=== PATIENT | female | born 1980 | race Caucasian/White ===

== ENCOUNTER 2019-02-10 20:42 | Observation (INO) | payer OTHER ==
[2019-02-10] MEDS ORDERED: Sodium Chloride 0.9% 1000 ML 1,000 ML ONE ×2 (20:52→22:35)
[2019-02-10] MEDS ORDERED: Sodium Chloride 0.9% 1000 ML 2,000 ML ONE (20:59)
[2019-02-10] MEDS ORDERED: Sodium Chloride 0.9% 1000 ML 1,000 ML IV STA (21:04)
[2019-02-10 21:09] LABS: A-aADO2 72; ABG HEMOGLOBIN 11.2; ARTERIAL BLD GAS O2 SATURATION 100.1 % (95-100); ARTERIAL BLOOD GAS BASE EXCESS -3.9 (-2.0-2.0); ARTERIAL BLOOD GAS FIO2 100 %; ARTERIAL BLOOD GAS PCO2 40 mmHg (35-45); ARTERIAL BLOOD GAS PO2 591 mmHg (75-100); ARTERIAL BLOOD GAS pH 7.34 (7.35-7.45); CARBOXYHEMOGLOBIN 1.8 % THgb (0.0-6.9); HCO3- 21.6 (22-28); Lactic Acid 1.4 (0.4-2.0); Methhemoglobin 1.3 % (1.4-1.5); paO2 pAO1 0.89
[2019-02-10 21:10] LABS: ABG SITE FEMORAL
[2019-02-10 21:11] LABS: ALLEN TEST OK? NO
--- NOTE | 2019-02-10 21:16 | ERPHSYRPT ---
- History of Present Illness Time Seen by Provider: 02/10/19 20:42 Source: other Physician History: A COUPLE DROVE HOME AND FOUND A STRANGER THE PATIENT SITTING IN A SWING ON THERE. PATIENT WITH HISTORY OF SUBSTANCE ABUSE, AMBULATED TO THEIR VAN AND ENROUTE TO EMERGENCY BECAME UNRESPONSIVE TO VERBAL STIMULI. Timing/Duration: today (PRIOR TO ER ARRIVAL) Character of Deficits: other (UNRESPONSIVE TO VERBAL STIMULI, WITHDRAWS TO PAIN) Baseline/Normal Cognition: poor alertness Current Cognition: poor alertness Associated Symptoms: loss of consciousness - Review of Systems Constitutional: Other (UNRESPONSIVE), No Fever, No Chills Respiratory: No Cough, No Dyspnea Cardiac: No Chest Pain, No Edema, No Syncope Abdominal/Gastrointestinal: No Abdominal Pain, No Nausea, No Vomiting, No Diarrhea Genitourinary Symptoms: No Dysuria Musculoskeletal: No Back Pain, No Neck Pain Skin: No Rash Neurological: No Dizziness, No Focal Weakness, No Sensory Changes All Other Systems: Unable due to condition (DUE TO UNRESPONSIVENESS) - Female History Hx Now: (UNKNOWN) - Nursing Vital Signs Nursing Vital Signs: Initial Vital Signs Temperature 96.4 F 02/10/19 20:42 Pulse Rate 82 02/10/19 20:42 Respiratory Rate 6 L 02/10/19 20:42 Blood Pressure 77/44 02/10/19 20:42 O2 Sat by Pulse Oximetry 100 02/10/19 20:42 Pain Scale Pain Intensity 0 - Odalis Coma Scale Best Eye Response (Odalis): (2) open to pain Best Verbal Response (Odalis): (1) no verbal response Best Motor Response (Odalis): (4) withdraws to pain Odalis Total: 7 - Physical Exam General Appearance: other (UNRESPONSIVE TO VERBAL STIMULI, WITHDRAWS TO JAW THRUST) Eye Exam: bilateral eye: other (PUPILS PINPOINT) Ears, Nose, Throat Exam: normal ENT inspection Neck Exam: normal inspection Respiratory: other (BREATH SOUNDS CLEAR BUT HYPOCAPNIC) Cardiovascular: regular rate/rhythm, gallop, other (PULSES 1+) Gastrointestinal: soft, normal bowel sounds Back Exam: normal inspection Extremity Exam: normal inspection Peripheral Pulses: carotid (R): 2+, carotid (L): 2+, femoral (R): 2+, femoral (L ): 1+, dorsalis-pedis (R): 1+, dorsalis-pedis (L): 1+ Mental Status: unresponsive DTR: bicep (R): 1+, bicep (L): 1+, tricep (R): 1+, tricep (L): 1+, knee (R): 1+ Skin Exam: normal color SpO2 Interpretation: normal SpO2: 100 O2 Delivery: Non-rebreather - Course EKG Interpreted by Me: RATE, Sinus Rhythm, NORMAL AXIS (RATE ), Right [place] Deviation (RATE OF 84) - Radiology Exams Chest X-ray Interpretation: Discussed w/ radiologist, Negative, No Infiltrates - CT Exams Head CT Interpretation: Discussed w/radiologist (NO GROSS ACUTE INTRACRANIAL ABNORMALITIES) Cervical Spine CT Interpretation: Discussed w/radiologist (NO EVIDENCE OF FRACTURE OR DISLOCATION), Other (MILD ANTERIOR SUBCUTANEOUS EMHYSEMA) Ordered Tests: Active Orders 24 hr Category Date Time Status Catheter-[place] Carter STAT Care 02/10/19 21:04 Active EKG-ER Only STAT Care 02/10/19 21:09 Active IV Insertion STAT Care 02/10/19 21:04 Active Oxygen-ED Only NON-REBREATHER 100% Care 02/10/19 21:04 Active CERVICAL SPINE WO CONTRAST [CT] Stat Exams 02/10/19 21:19 Completed CHEST 1 VIEW (PORTABLE) Stat Exams 02/10/19 22:09 Taken HEAD WITHOUT CONTRAST [CT] Stat Exams 02/10/19 21:19 Completed ACETAMINOPHEN Stat Lab 02/10/19 21:00 Completed AMYLASE Stat Lab 02/10/19 21:00 Completed ARTERIAL BLOOD GASES Stat Lab 02/10/19 21:04 Completed CBC W DIFF Stat Lab 02/10/19 21:00 Completed CMP Stat Lab 02/10/19 21:00 Completed CULTURE,URINE Stat Lab 02/10/19 21:44 Received ETHYL ALCOHOL Stat Lab 02/10/19 21:00 Completed HCG,QUALITATIVE URINE Stat Lab 02/10/19 21:36 Completed LIPASE Stat Lab 02/10/19 21:00 Completed Lactic Acid Stat Lab 02/10/19 21:04 Completed PROTIME WITH INR Stat Lab 02/10/19 21:00 Completed SALICYLATE Stat Lab 02/10/19 21:00 Completed UA W/RFX UR CULTURE Stat Lab 02/10/19 21:44 Completed Urine Triage Profile Stat Lab 02/10/19 21:44 Completed Transfer Order Routine Transfer 02/11/19 Ordered Medication Summary Generic Name Dose Route Start Last Admin Trade Name Fresummer PRN Reason Stop Dose Admin Sodium Chloride 1,000 mls @ 999 mls/hr 02/11/19 00:33 02/10/19 20:45 Sodium Chloride 0.9% 1000 Ml IV 02/11/19 01:33 999 mls/hr .Q1H1M STA Administration Sodium Chloride 1,000 mls @ 999 mls/hr 02/11/19 00:34 02/10/19 20:50 Sodium Chloride 0.9% 1000 Ml IV 02/11/19 01:34 999 mls/hr .Q1H1M STA Administration Discontinued Medications Generic Name Dose Route Start Last Admin Trade Name Lionq PRN Reason Stop Dose Admin Albuterol/Ipratropium Confirm 02/11/19 00:37 Duoneb 0.5-3 Mg/3 Ml Neb Administered 02/11/19 00:38 Dose 3 ml IH .STK-MED ONE Sodium Chloride Confirm 02/10/19 20:52 Sodium Chloride 0.9% 1000 Ml Administered 02/10/19 20:53 Dose 1,000 mls @ ud .ROUTE .STK-MED ONE Sodium Chloride Confirm 02/10/19 20:59 Sodium Chloride 0.9% 1000 Ml Administered 02/10/19 21:00 Dose 2,000 mls @ ud .ROUTE .STK-MED ONE Sodium Chloride 1,000 mls @ 999 mls/hr 02/10/19 21:04 02/10/19 20:45 Sodium Chloride 0.9% 1000 Ml IV 02/10/19 22:04 999 mls/hr .Q1H1M STA Administration Sodium Chloride Confirm 02/10/19 22:35 Sodium Chloride 0.9% 1000 Ml Administered 02/10/19 22:36 Dose 1,000 mls @ ud .ROUTE .STK-MED ONE Naloxone HCl 2 mg 02/11/19 00:33 02/10/19 20:43 Narcan 2 Mg/2 Ml IV 02/11/19 00:34 2 mg STAT ONE Administration Lab/Rad Data: Laboratory Result Diagrams 02/10/19 21:00 02/10/19 21:00 Laboratory Results 02/10/19 02/10/19 02/10/19 Range/Units 21:44 21:44 21:36 WBC (4.0-10.5) K/mm3 RBC (4.1-5.4) M/mm3 Hgb (12.0-16.0) gm/dl Hct (35-47) % MCV (78-100) fl MCH (26-32) pg MCHC (32-36) g/dl RDW (11.5-14.0) % Plt Count (150-450) K/mm3 MPV (6-9.5) fl Gran % (36.0-66.0) % Eos # (Auto) (0-0.5) Absolute Lymphs (auto) (1.0-4.6) Absolute Monos (auto) (0.0-1.3) Lymphocytes % (24.0-44.0) % Monocytes % (0.0-12.0) % Eosinophils % (0.00-5.0) % Basophils % (0.0-0.4) % Absolute Granulocytes (1.4-6.9) Basophils # (0-0.4) PT (9.95-12.35) SECONDS INR (0.8-3.0) Puncture Site pCO2 (35-45) mmHg pO2 (75-100) mmHg Base Excess (-2.0-2.0) O2 Saturation (94-100) g/dF ABG pH (7.35-7.45) ABG HCO3 (22-28) ABG O2 Sat (Measured) (95-100) % Christophe Test A-a Gradient a/A Ratio Hemoglobin Carboxyhemoglobin (0.0-6.9) % THgb Methemoglobin (1.4-1.5) % Temperature C POC O2 Flow Rate % Sodium (137-145) mmol/L Potassium (3.5-5.1) mmol/L Chloride (98-107) mmol/L Carbon Dioxide (22-30) mmol/L Anion Gap (5-15) MEQ/L BUN (7-17) mg/dL Creatinine (0.52-1.04) mg/dL Estimated GFR ML/MIN Glucose (74-106) mg/dL Lactic Acid (0.4-2.0) Calcium (8.4-10.2) mg/dL Total Bilirubin (0.2-1.3) mg/dL AST (14-36) U/L ALT (0-35) U/L Alkaline Phosphatase (38-126) U/L Serum Total Protein (6.3-8.2) g/dL Albumin (3.5-5.0) g/dL Amylase (30-110) U/L Lipase (23-300) U/L Urine Color YELLOW (YELLOW) Urine Appearance CLOUDY (CLEAR) Urine pH 5.0 (5-6) Ur Specific Iota 1.019 (1.005-1.025) Urine Protein 30 (Negative) Urine Ketones NEGATIVE (NEGATIVE) Urine Blood NEGATIVE (0-5) Robbi/ul Urine Nitrite NEGATIVE (NEGATIVE) Urine Bilirubin NEGATIVE (NEGATIVE) Urine Urobilinogen NEGATIVE (0-1) mg/dL Ur Leukocyte Esterase NEGATIVE (NEGATIVE) Urine WBC (Auto) 0-2 (0-5) /HPF Urine RBC (Auto) 0-2 (0-2) /HPF U Hyaline Cast (Auto) 11-25 (0-2) /LPF U Epithel Cells (Auto) RARE (FEW) /HPF Urine Bacteria (Auto) NONE (NEGATIVE) /HPF Urine Mucus (Auto) SLIGHT (NEGATIVE) /HPF Urine Culture Reflexed NO (NO) Urine Glucose NEGATIVE (NEGATIVE) mg/dL Urine HCG, Qual NEGATIVE (Negative) Salicylates (2-20) mg/dL Urine Opiates Level NEGATIVE (NEGATIVE) Ur Methadone NEGATIVE (NEGATIVE) Acetaminophen (10-30) ug/ml Urine Barbiturates NEGATIVE (NEGATIVE) Ur Phencyclidine (PCP) NEGATIVE (NEGATIVE) Urine Amphetamine POSITIVE (NEGATIVE) U Benzodiazepine Level POSITIVE (NEGATIVE) Urine Cocaine NEGATIVE (NEGATIVE) Urine Marijuana (THC) POSITIVE (NEGATIVE) Ethyl Alcohol (0-10) mg/dL 02/10/19 02/10/19 02/10/19 Range/Units 21:04 21:00 21:00 WBC (4.0-10.5) K/mm3 RBC (4.1-5.4) M/mm3 Hgb (12.0-16.0) gm/dl Hct (35-47) % MCV (78-100) fl MCH (26-32) pg MCHC (32-36) g/dl RDW (11.5-14.0) % Plt Count (150-450) K/mm3 MPV (6-9.5) fl Gran % (36.0-66.0) % Eos # (Auto) (0-0.5) Absolute Lymphs (auto) (1.0-4.6) Absolute Monos (auto) (0.0-1.3) Lymphocytes % (24.0-44.0) % Monocytes % (0.0-12.0) % Eosinophils % (0.00-5.0) % Basophils % (0.0-0.4) % Absolute Granulocytes (1.4-6.9) Basophils # (0-0.4) PT 12.8 H (9.95-12.35) SECONDS INR 1.13 (0.8-3.0) Puncture Site FEMORAL pCO2 40 (35-45) mmHg pO2 591 H* (75-100) mmHg Base Excess -3.9 L (-2.0-2.0) O2 Saturation 97.0 (94-100) g/dF ABG pH 7.34 L (7.35-7.45) ABG HCO3 21.6 L (22-28) ABG O2 Sat (Measured) 100.1 H (95-100) % Christophe Test NO A-a Gradient 72 a/A Ratio 0.89 Hemoglobin 11.2 Carboxyhemoglobin 1.8 (0.0-6.9) % THgb Methemoglobin 1.3 L (1.4-1.5) % Temperature 37.0 C POC O2 Flow Rate 100 % Sodium (137-145) mmol/L Potassium 4.0 (3.5-5.1) mmol/L Chloride (98-107) mmol/L Carbon Dioxide (22-30) mmol/L Anion Gap (5-15) MEQ/L BUN (7-17) mg/dL Creatinine (0.52-1.04) mg/dL Estimated GFR ML/MIN Glucose (74-106) mg/dL Lactic Acid 1.4 (0.4-2.0) Calcium (8.4-10.2) mg/dL Total Bilirubin (0.2-1.3) mg/dL AST (14-36) U/L ALT (0-35) U/L Alkaline Phosphatase (38-126) U/L Serum Total Protein (6.3-8.2) g/dL Albumin (3.5-5.0) g/dL Amylase 49 (30-110) U/L Lipase 62 (23-300) U/L Urine Color (YELLOW) Urine Appearance (CLEAR) Urine pH (5-6) Ur Specific Iota (1.005-1.025) Urine Protein (Negative) Urine Ketones (NEGATIVE) Urine Blood (0-5) Robbi/ul Urine Nitrite (NEGATIVE) Urine Bilirubin (NEGATIVE) Urine Urobilinogen (0-1) mg/dL Ur Leukocyte Esterase (NEGATIVE) Urine WBC (Auto) (0-5) /HPF Urine RBC (Auto) (0-2) /HPF U Hyaline Cast (Auto) (0-2) /LPF U Epithel Cells (Auto) (FEW) /HPF Urine Bacteria (Auto) (NEGATIVE) /HPF Urine Mucus (Auto) (NEGATIVE) /HPF Urine Culture Reflexed (NO) Urine Glucose (NEGATIVE) mg/dL Urine HCG, Qual (Negative) Salicylates (2-20) mg/dL Urine Opiates Level (NEGATIVE) Ur Methadone (NEGATIVE) Acetaminophen (10-30) ug/ml Urine Barbiturates (NEGATIVE) Ur Phencyclidine (PCP) (NEGATIVE) Urine Amphetamine (NEGATIVE) U Benzodiazepine Level (NEGATIVE) Urine Cocaine (NEGATIVE) Urine Marijuana (THC) (NEGATIVE) Ethyl Alcohol (0-10) mg/dL 02/10/19 02/10/19 Range/Units 21:00 21:00 WBC 11.7 H (4.0-10.5) K/mm3 RBC 4.19 (4.1-5.4) M/mm3 Hgb 12.2 (12.0-16.0) gm/dl Hct 37.9 (35-47) % MCV 90.5 (78-100) fl MCH 29.1 (26-32) pg MCHC 32.2 (32-36) g/dl RDW 14.8 H (11.5-14.0) % Plt Count 342 (150-450) K/mm3 MPV 10.6 H (6-9.5) fl Gran % 59.1 (36.0-66.0) % Eos # (Auto) 0.53 H (0-0.5) Absolute Lymphs (auto) 3.15 (1.0-4.6) Absolute Monos (auto) 1.07 (0.0-1.3) Lymphocytes % 27.0 (24.0-44.0) % Monocytes % 9.2 (0.0-12.0) % Eosinophils % 4.5 (0.00-5.0) % Basophils % 0.2 (0.0-0.4) % Absolute Granulocytes 6.88 (1.4-6.9) Basophils # 0.02 (0-0.4) PT (9.95-12.35) SECONDS INR (0.8-3.0) Puncture Site pCO2 (35-45) mmHg pO2 (75-100) mmHg Base Excess (-2.0-2.0) O2 Saturation (94-100) g/dF ABG pH (7.35-7.45) ABG HCO3 (22-28) ABG O2 Sat (Measured) (95-100) % Christophe Test A-a Gradient a/A Ratio Hemoglobin Carboxyhemoglobin (0.0-6.9) % THgb Methemoglobin (1.4-1.5) % Temperature C POC O2 Flow Rate % Sodium 141 (137-145) mmol/L Potassium 4.5 (3.5-5.1) mmol/L Chloride 115 H (98-107) mmol/L Carbon Dioxide 20 L (22-30) mmol/L Anion Gap 11.1 (5-15) MEQ/L BUN 32 H (7-17) mg/dL Creatinine 3.62 H (0.52-1.04) mg/dL Estimated GFR 14.9 ML/MIN Glucose 119 H (74-106) mg/dL Lactic Acid (0.4-2.0) Calcium 7.5 L (8.4-10.2) mg/dL Total Bilirubin 0.30 (0.2-1.3) mg/dL AST 18 (14-36) U/L ALT 13 (0-35) U/L Alkaline Phosphatase 75 (38-126) U/L Serum Total Protein 6.1 L (6.3-8.2) g/dL Albumin 3.3 L (3.5-5.0) g/dL Amylase (30-110) U/L Lipase (23-300) U/L Urine Color (YELLOW) Urine Appearance (CLEAR) Urine pH (5-6) Ur Specific [place] (1.005-1.025) Urine Protein (Negative) Urine Ketones (NEGATIVE) Urine Blood (0-5) Robbi/ul Urine Nitrite (NEGATIVE) Urine Bilirubin (NEGATIVE) Urine Urobilinogen (0-1) mg/dL Ur Leukocyte Esterase (NEGATIVE) Urine WBC (Auto) (0-5) /HPF Urine RBC (Auto) (0-2) /HPF U Hyaline Cast (Auto) (0-2) /LPF U Epithel Cells (Auto) (FEW) /HPF Urine Bacteria (Auto) (NEGATIVE) /HPF Urine Mucus (Auto) (NEGATIVE) /HPF Urine Culture Reflexed (NO) Urine Glucose (NEGATIVE) mg/dL Urine HCG, Qual (Negative) Salicylates < 1.0 L (2-20) mg/dL Urine Opiates Level (NEGATIVE) Ur Methadone (NEGATIVE) Acetaminophen < 10 L (10-30) ug/ml Urine Barbiturates (NEGATIVE) Ur Phencyclidine (PCP) (NEGATIVE) Urine Amphetamine (NEGATIVE) U Benzodiazepine Level (NEGATIVE) Urine Cocaine (NEGATIVE) Urine Marijuana (THC) (NEGATIVE) Ethyl Alcohol < 10 (0-10) mg/dL - Progress Progress Note: 02/10/19 22:56 ARRIVED TO EMERGENCY ROOM VIA STRETCHER, UNRESPONSIVE TO VERBAL STIMULI, WITHDRAWS TO PAIN, HAS EYE OPENING AND INCREASED RESPIRATIONS UPON JAW THRUST, AN ARTERIAL BLOOD GAS ON 100% NONREBREATHER ABG PH-7.34, CO2-40, PO2-591,SAO2- 100%, LACTIC ACID 1.4 PATIENT HYDRATED 2LITERS OVER 90MINUTESN, REPEATED TO TOTAL DOSE OF 4000ML OVER 3 HOURS. BP IMPROVED TOO 96 SYSTOLIC 02/11/19 00:34 BP 103/60, PATIENT COMPLETELY AWAKE AT 0028 ADMINISTERED DUONEB AEROSOL TX Discussed with Dr.: Arce (DISCUSSED WITH DR ARCE AT 0030 FOR OBSERVATION) Counseled pt/family regarding: lab results, diagnosis, need for follow-up - Departure Departure Disposition: Observation Clinical Impression: POLYSUBSTANCE OVER DOSE Condition: Stable Critical Care Time: No Critical Care Time(excluding separately billable procedures): ___ minutes (90) Referrals: Provider,Unknown [Primary Care Provider] -
[2019-02-10 21:19] LABS: BASOPHIL % 0.2 % (0.0-0.4); Basophil (Absolute #) 0.02 (0-0.4); Eosinophil % 4.5 % (0.00-5.0); Eosinophil (Absolute #) 0.53 (0-0.5); Granulocyte Absolute (ANC) 6.88 (1.4-6.9); Granulocytes % 59.1 % (36.0-66.0); Hematocrit 37.9 % (35-47); Hemoglobin 12.2 gm/dl (12.0-16.0); Lymphocyte (Absolute #) 3.15 (1.0-4.6); Mean Cell Volume 90.5 fl (78-100); Mean Corpuscular Hemoglobin 29.1 pg (26-32); Mean Corpuscular Hgb Concent. 32.2 g/dl (32-36); Mean Platelet Volume 10.6 fl (6-9.5); Monocyte (Absolute #) 1.07 (0.0-1.3); Monocytes % 9.2 % (0.0-12.0); Platelet Count 342 K/mm3 (150-450); Red Blood Count 4.19 M/mm3 (4.1-5.4); Red Cell Distribution Width 14.8 % (11.5-14.0); White Blood Count 11.7 K/mm3 (4.0-10.5)
[2019-02-10 21:45] LABS: Appearance CLOUDY (CLEAR); Bilirubin NEGATIVE (NEGATIVE); Blood NEGATIVE Ery/ul (0-5); Epithelial Cells RARE /HPF (FEW); Glucose NEGATIVE (NEGATIVE); Ketones NEGATIVE (NEGATIVE); Leukocyte Esterase NEGATIVE (NEGATIVE); Mucus SLIGHT /HPF (NEGATIVE); Nitrite NEGATIVE (NEGATIVE); Protein,Urine Dip 30 (Negative); RBC 0-2 /HPF (0-2); Specific Gravity 1.019 (1.005-1.025); Urobilinogen NEGATIVE mg/dL (0-1); WBC 0-2 /HPF (0-5)
[2019-02-10 21:59] LABS: Barbiturate,Urine NEGATIVE (NEGATIVE); Benzodiazepine,Urine POSITIVE (NEGATIVE); Cocaine,Urine NEGATIVE (NEGATIVE); Methadone,Urine NEGATIVE (NEGATIVE); Opiate,Urine NEGATIVE (NEGATIVE); PCP,Urine NEGATIVE (NEGATIVE); THC,Urine POSITIVE (NEGATIVE)
--- NOTE | 2019-02-10 22:07 | XRAY ---
Indication: Unresponsive. Possible drug overdose. Multiple contiguous axial images obtained through the head without contrast. Comparison: None Images through the base of the brain slightly degraded by motion artifact. No gross acute intracranial hemorrhage, abnormal extra-axial fluid collection, or mass effect. Fourth ventricle is midline without hydrocephalus. Pretty-white matter differentiation preserved. Bony calvarium intact. Visualized paranasal sinuses and mastoid air cells are clear. Impression: Minimal motion artifact. No gross acute intracranial abnormalities. CTDI 59.80
--- NOTE | 2019-02-10 22:10 | XRAY ---
Indication: Unresponsive. Possible drug overdose. Multiple contiguous axial images obtained through the cervical spine. Sagittal and coronal reformatted images obtained. Comparison: None Nonunited posterior arch of C1, normal variant. Axial images negative for acute fracture, suspicious bony lesions, or spinal canal stenosis. Sagittal and coronal reformatted images demonstrates normal cervical alignment with vertebral body heights and disc spaces maintained. No acute compression fracture, subluxation, or jumped facet. Normal-appearing craniocervical junction. Visualized noncontrasted soft tissues demonstrates mild scattered subcutaneous emphysema anteriorly and a nasopharyngeal cannula. Lung apices are clear. Patient is incidentally edentulous. Impression: 1. Negative acute fracture/subluxation. 2. Mild anterior subcutaneous emphysema. Query recent trauma, i.e. rib fractures. CTDI 71.43
[2019-02-10 22:13] LABS: INR 1.13 (0.8-3.0); PROTIME 12.8 SECONDS (9.95-12.35)
[2019-02-10 22:21] LABS: ALBUMIN 3.3 g/dL (3.5-5.0); ALKALINE PHOSPHATASE 75 U/L (38-126); ANION GAP 11.1 MEQ/L (5-15); BLOOD UREA NITROGEN 32 mg/dL (7-17); CHLORIDE 115 mmol/L (98-107); Calcium 7.5 mg/dL (8.4-10.2); Carbon Dioxide 20 mmol/L (22-30); Creatinine 1 3.62 mg/dL (0.52-1.04); Glucose 119 mg/dL (74-106); Potassium 4.5 mmol/L (3.5-5.1); SGOT/AST 18 U/L (14-36); SGPT/ALT 13 U/L (0-35); SODIUM 141 mmol/L (137-145); Total Protein 6.1 g/dL (6.3-8.2)
[2019-02-10 22:24] LABS: Amphetamine,Urine POSITIVE (NEGATIVE)
[2019-02-10 22:24] LABS: ACETAMINOPHEN < 10 ug/ml (10-30); AMYLASE 49 U/L (30-110); ETHYL ALCOHOL < 10 mg/dL (0-10); SALICYLATE < 1.0 mg/dL (2-20)
[2019-02-11] MEDS ORDERED: Sodium Chloride 0.9% 1000 ML 1,000 ML IV STA ×2 (00:33→00:34)
[2019-02-11] MEDS ORDERED: NARCAN 2 MG/2 ML IV ONE (00:33)
[2019-02-11] MEDS ORDERED: DUONEB 0.5-3 MG/3 ml Neb IH ONE ×2 (00:37→00:39)
[2019-02-11] MEDS ORDERED: Sodium Chloride 0.9% 1000 ML 1,000 ML IV SCH (01:39)
[2019-02-11] MEDS ORDERED: DUONEB 0.5-3 MG/3 ml Neb IH PRN (01:39)
[2019-02-11] MEDS ORDERED: Zofran 4 MG/2 ML VIAL IV PRN (01:39)
[2019-02-11] MEDS ORDERED: Xopenex 1.25 MG/0.5 ML UD NEBULE IH PRN (01:39)
[2019-02-11 07:25] VITALS: BP 90/65; PULSE 90; O2SAT 93
--- NOTE | 2019-02-11 09:54 | XRAY ---
Indication: Unresponsive. Comparison: None Portable chest underinflated and clear with incidental overlying monitoring leads. Heart and mediastinal structures within normal limits. Bony thorax intact. Impression: Nonacute underinflated chest.
[2019-02-11] MEDS ORDERED: Bactroban OINTMENT TP PRN (10:13)
[2019-02-11] MEDS ORDERED: BACTRIM DS TABLET PO ONE (11:00)
[2019-02-11] MEDS ORDERED: BACIGUENT 30 GM TP SCH (11:00)
[2019-02-11] MEDS ORDERED: ZOLOFT 50 MG TABLET PO SCH (13:00)
[2019-02-12] MEDS ORDERED: NON-FORMULARY ITEM (Sertraline Hcl [Zoloft] 200 MG) PO SCH (10:00)
--- NOTE | 2019-02-13 09:14 | HP ---
CHIEF COMPLAINT: Decreased level of consciousness. HISTORY OF PRESENT ILLNESS: The patient is a 38 year-old white female who was reportedly found by a stranger sitting in a swing. 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 She does see a psychiatrist in [place] who in fact saw her within the last month. The patient reports that she is missing her dad and has been depressed. When asked about the use of illicit drugs and the potential for using those medicines to cause herself harm she said "Maybe I did" but does not feel that way presently. PAST MEDICAL/SURGICAL HISTORY: Otherwise significant for anxiety, depression and polysubstance abuse. The patient also sustained some lacerations recently to her right inner aspect of her forearm and area above the left medial malleolus which does appear slightly reddened around the wound site. PHYSICAL EXAMINATION: Revealed a well-nourished, well-developed 38 year-old white female in no distress. Her vital signs in the emergency room show her temperature 96.4F, pulse 82 and respiratory rate 16. Blood pressure was initially 77/44. O2 saturation 100%. Her vital signs are now stable. HEENT: Reveals the patient to be normocephalic, atraumatic. Pupils equal round reactive to light. She is edentulous. NECK: Supple without lymphadenopathy, thyromegaly or JVD. CHEST: Clear to auscultation. HEART: Regular rate and rhythm. ABDOMEN: Soft. No palpable masses. EXTREMITIES: Currently without cyanosis, clubbing or edema. NEUROLOGIC: The patient is alert and oriented x3. PSYCH: Demeanor she is somewhat anxious and tearful during the interview. LAB DATA AND TESTS: The patient's urine drug screen was positive for amphetamine, benzodiazepine and THC. According to her also she reported was taking gabapentin roughing about 8 tablets she thinks. The patient's laboratory studies showed her white count to be 11,700, hemoglobin 12.2, PLT count 342,000. International normalized ratio 1.13. UA specific gravity 1.019 and was essentially normal otherwise. ABG showed pH of 7.34, pCO2 40, pO2 591. Glucose 119, BUN 32, creatinine 3.62. Her electrolytes initially showed sodium 141, potassium 4.5, chloride 115, chloride 20, bicarb 7.5 initially. Acetaminophen, salicylates and alcohol were all essentially negative. Urine HCG was negative. The patient had CT scan of the head showed no gross acute intracranial abnormalities. Spine showed negative for acute fracture or subluxation. ASSESSMENT: A patient with polysubstance abuse and depression. The patient was profoundly diminished in her consciousness initially on arrival to the emergency room. After Narcan and other treatments she did eventually improve to the point where roughly three hours later she was alert and oriented x3. The patient has been resting through the night but aroused at approximately at 0500 hours and since that time has been alert and oriented x3. We will obtain a [facility] consultation. The patient will not be discharged home until at least one other person to be with her over the next 24 hours minimum. We will also follow [facility]'s consultation in regarding if they feel she needs to be admitted as inpatient we will enter sign for emergency skilled nursing if the need arises.
== END 2019-02-11 14:10 | disposition home or self-care (01) ==
LOC: ED 20:42 → ICU 02-11 01:37
PROVIDERS: ADMIT Family Medicine; ATTEND Family Medicine
DX: R55 Syncope and collapse (principal); F19.10 Other psychoactive substance abuse, uncomplicated; F32.9 Major depressive disorder, single episode, unspecified; S51.811A Laceration without foreign body of right forearm, initial encounter; S91.012A Laceration without foreign body, left ankle, initial encounter
CPT/HCPCS: 36415; 51702; 70450; 72125; 80053; 80307; 81001; 82150; 82375; 82803; 83605; 83690; 84703; 85025; 85610; 87086; 90791; 93005; 93268; 94640; 96360; 96374; 99291; 99292; G0378; G0480; G0481; Q3014; 36000; 36600; 71045; 99285; J2310; A9270-GY